=== PATIENT | female | born 1960 | race Caucasian/White ===

== ENCOUNTER → 2023-05-16 12:57 | Outpatient (BNVA) | payer MEDICARE, MEDICAID, SELFPAY | PROVIDERS: Visit Provider Nurse Practitioner Family | DX: L29.9 Pruritus, unspecified (principal); B35.1 Tinea unguium; K74.60 Unspecified cirrhosis of liver; L21.8 Other seborrheic dermatitis; L70.8 Other acne; L57.8 Other skin changes due to chronic exposure to nonionizing radiation; L81.4 Other melanin hyperpigmentation; D69.2 Other nonthrombocytopenic purpura; D18.01 Hemangioma of skin and subcutaneous tissue | CPT/HCPCS: 99204 ==

== ENCOUNTER → 2023-06-21 14:37 | Outpatient (BNVA) | payer MEDICARE, MEDICAID, SELFPAY | PROVIDERS: Visit Provider Nurse Practitioner Family | DX: B35.1 Tinea unguium (principal); K74.60 Unspecified cirrhosis of liver; L21.8 Other seborrheic dermatitis; L70.8 Other acne; L57.8 Other skin changes due to chronic exposure to nonionizing radiation; L81.4 Other melanin hyperpigmentation; D69.2 Other nonthrombocytopenic purpura; D18.01 Hemangioma of skin and subcutaneous tissue; C22.9 Malignant neoplasm of liver, not specified as primary or secondary; L98.1 Factitial dermatitis | CPT/HCPCS: 99214 ==